=== PATIENT | male | born 1995 | race Caucasian/White ===

== ENCOUNTER → 2018-03-23 12:29 | Emergency (ER) | payer BC ==
[~2018-03-23 12:29] MED LIST: Ketorolac INJ* 30 MG/ML 1 ML VIAL IV PUSH ONE; NS 0.9% 1000 ML* 1,000 ML IV ONE; Ondansetron INJ* 2 MG/ML VIAL IV ONE
--- NOTE | 2018-03-23 13:55 | RAD ---
HISTORY: cough, chills COMPARISONS: None VIEWS: 4: Frontal dual-energy and lateral views of the chest. FINDINGS: CARDIOMEDIASTINAL SILHOUETTE: The cardiomediastinal silhouette is normal. ESTHELA: The esthela are normal. PLEURA: The costophrenic angles are sharp. No pleural abnormalities are noted. LUNG PARENCHYMA: The lungs are clear. ABDOMEN: The upper abdomen is clear. There is no subphrenic gas. BONES AND SOFT TISSUES: No bone or soft tissue abnormalities are noted. OTHER: None. IMPRESSION: NO ACTIVE CARDIOPULMONARY DISEASE.
--- NOTE | 2018-03-23 18:06 | ED ---
Complex/Multi-Sys Presentation - HPI Summary HPI Summary: A 23 y/o M presents to ED with c/o nausea/vomiting onset this afternoon [employer] while fishing. Associated sx: hematemesis, productive cough onset 0200, R-sided CP secondary to cough and deep breaths, sore throat, hot/cold flashes, dizziness. Denies MERLOS, abd pain, back pain, bowel and urinary symptoms, rash, pedal edema, anxiety, depression. Pt denies being around anyone sick recently. He does not take daily aspirin or motrin. Pt is a smoker. Denies daily ETOH. Denies PMHx: DM, HTN. - History Of Current Complaint Chief Complaint: EDGeneral Hx Obtained From: Patient, Family/Assistant Professor In Family Studies - dad Onset/Duration: Sudden Onset, Lasting Hours, Still Present Timing: Constant Severity Currently: Moderate Severity Initially: Moderate Associated Signs And Symptoms: Positive: Dizziness, Cough, Chest Pain, Nausea, Vomiting, Hematemesis, Other - pos: sore throat; hot/cold flashes. neg: anxiety , depression. Negative: Headache, Edema - pedal edema, Abdominal Pain, Back Pain, Dysuria, Melena - Allergies/Home Medications Allergies/Adverse Reactions: Allergies Allergy/AdvReac Type Severity Reaction Status Date / Time No Known Allergies Allergy Verified 03/23/18 17:47 PMH/Surg Hx/FS Hx/Imm Hx Previously Healthy: Yes Endocrine/Hematology History: Denies: Hx Diabetes Cardiovascular History: Denies: Hx Hypertension Respiratory History: Denies: Hx Chronic Obstructive Pulmonary Disease (COPD) Opthamlomology History: Denies: Hx Legally Blind Neurological History: Denies: Hx CVA Infectious Disease History: No Infectious Disease History: Denies: Traveled Outside the [place] in Last 30 Days - Family History Known Family History: Positive: Diabetes - mom Negative: Cardiac Disease, Hypertension - Social History Occupation: Employed Full-time Lives: Alone Alcohol Use: Rare Substance Use Type: Reports: Marijuana Substance Use Comment - Amount & Last Used: 03/09/18 Smoking Status (MU): Heavy Every Day Tobacco Smoker Review of Systems Positive: Other - pos: hot/cold flashes Positive: Sore Throat Positive: Chest Pain - secondary to cough Positive: Cough Positive: Vomiting - with blood, Nausea. Negative: Abdominal Pain Genitourinary: Negative Negative: Edema Skin: Negative Neurological: Other - pos: dizziness Negative: Headache Negative: Anxious, Depressed All Other Systems Reviewed And Are Negative: No Physical Exam - Summary Physical Exam Summary: Appearance: Alert, conversive, nontoxic appearing Skin: Warm, dry, no mottling, no rashes, no contusions HEENT: EOMI, PERRL, moist mucous membranes Neck: No masses on the neck, supple Respiratory: Clear to auscultation, breath sounds present, no rales, no rhonchi , no wheezes Cardiovascular: RRR, pulses are symmetrical in both lower and upper extremities. Mild reproducible chest wall pain on R-side. Abdomen: Soft, non-tender Bowel Sounds: Present Musculoskeletal: No CVA tenderness, no obvious deformity, moving all extremities in a grossly normal manner Neurological: A&Ox3, CN II-XII Intact, moving all extremities symmetrically Psychiatric: Normal affect and mood Triage Information Reviewed: Yes Vital Signs On Initial Exam: Initial Vitals Temp Pulse Resp BP Pulse Ox 98.1 F 60 18 111/96 98 03/23/18 12:37 03/23/18 12:37 03/23/18 12:37 03/23/18 12:37 03/23/18 12:37 Vital Signs Reviewed: Yes Diagnostics - Vital Signs Vital Signs Temp Pulse Resp BP Pulse Ox 03/23/18 17:47 83 14 136/74 98 03/23/18 17:46 78 98 03/23/18 17:03 99.3 F 72 20 132/73 100 03/23/18 15:35 98.7 F 78 20 139/68 100 03/23/18 12:37 98.1 F 60 18 111/96 98 - Laboratory Result Diagrams: 03/23/18 18:48 03/23/18 18:48 Lab Statement: Any lab studies that have been ordered have been reviewed, and results considered in the medical decision making process. - Radiology CXR Xray Interpretation: No Acute Changes - IMPRESSION: No active cardiopulmonary dz. ED provider has reviewed this report. Radiology Interpretation Completed By: Radiologist Re-Evaluation - Re-Evaluation 1 Re-Evaluation Time: 20:33 Change: Improved Comment: Discussing results with pt and plan to dispo. Complex Multi-Symp Course/Dx Course Of Treatment: Pt is a 23 y/o M presenting with sudden-onset n/v and hematemisis this afternoon. Associated sx: cough onset 0200, R-sided CP secondary to cough and deep breaths, sore throat, hot/cold flashes, dizziness. CXR is unremarkable. Flu in negative. - Diagnoses Provider Diagnoses: Costochondritis, Acute bronchitis Discharge - Sign-Out/Discharge Documenting (check all that apply): Patient Departure - DC - Discharge Plan Condition: Stable Disposition: HOME Prescriptions: Azithromyxin JAKOB (NF) [Z-Jakob (Zithromax) 250 mg tabs #6] 2 tab PO .TODAY, THEN 1 DAILY #6 tab Patient Education Materials: Costochondritis (ED), Acute Bronchitis (ED) Forms: *Work Release Referrals: [facility] [Outside] [facility] [Outside] Additional Instructions: take the medications as previously instructed. return if worse or any new symptoms. Please follow up with your primary care physician this week. take tylenol and motrin for pain. - Billing Disposition and Condition Condition: STABLE Disposition: Home - Attestation Statements Document Initiated by Scribe: Yes Documenting Scribe: Jyotsna Dunlap Provider For Whom Vaishaliibe is Documenting (Include Credential): Dr. Belen Felix MD Scribe Attestation: I, Jyotsna Dunlap, scribed for Dr. Belen Felix MD on 03/23/18 at 2156. Scribe Documentation Reviewed: Yes Provider Attestation: The documentation as recorded by the Jyotsna abdi accurately reflects the service I personally performed and the decisions made by , Dr. Belen Felix MD
[2018-03-23 18:54] LABS: ABS Basophils 0.2 10^3/ul (0-0.2); ABS Eosinophils 0.1 10^3/ul (0-0.6); ABS Lymphocytes 3.2 10^3/ul (1.0-4.8); ABS Neutrophils 6.1 10^3/ul (1.5-7.7); ABS Nucleated RBC 0 10^3/ul; Eosinophil % 1.2 % (0-6); Hematocrit 45 % (42-52); Hemoglobin 15.5 g/dl (14.0-18.0); Lymphocyte % 30.2 % (25-47); Mean Corpuscular HGB Conc 35 g/dl (31-36); Mean Corpuscular Hemoglobin 32 pg (27-31); Mean Corpuscular Volume 92 fL (80-94); Mean Platelet Volume 7.7 um3 (7.4-10.4); Nucleated Red Blood Cells % 0.1; Platelet Count 291 10^3/ul (150-450); Red Blood Count 4.88 10^6/ul (4.00-5.40); Red Cell Distribution Width 14 % (10.5-15); White Blood Count 10.6 10^3/ul (3.5-10.8)
[2018-03-23 19:10] LABS: EGFR Non-African American 120.9 (>60)
[2018-03-23 20:54] VITALS: BP 131/71
== END | disposition home or self-care (01) ==
LOC: ED 12:29
DX: M94.0 Chondrocostal junction syndrome [Tietze] (principal); J20.9 Acute bronchitis, unspecified; E11.9 Type 2 diabetes mellitus without complications; I10 Essential (primary) hypertension; Z72.0 Tobacco use
CPT/HCPCS: 36415; 71046; 80053; 83605; 83690; 85025; 85379; 96361; 96374; 96375; 99283; J1885; J2405

== ENCOUNTER 2019-01-24 08:01 | Emergency (ER) | payer BC, OTHER ==
--- NOTE | 2019-01-24 08:15 | ED ---
Upper Extremity Pain - History of Current Complaint Chief Complaint: EDShoulderClavicleInj Stated Complaint: LEFT SHOULDER PAIN PER PT Time Seen by Provider: 01/24/19 08:10 Hx Obtained From: Patient - Allergies/Home Medications Allergies/Adverse Reactions: Allergies Allergy/AdvReac Type Severity Reaction Status Date / Time No Known Allergies Allergy Verified 01/24/19 08:05 Home Medications: Home Medications NK [No Home Medications Reported] 01/24/19 [History Confirmed 01/24/19] PMH/Surg Hx/FS Hx/Imm Hx Previously Healthy: Yes Endocrine/Hematology History: Denies: Hx Diabetes Cardiovascular History: Denies: Hx Hypertension Respiratory History: Denies: Hx Chronic Obstructive Pulmonary Disease (COPD) Sensory History: Denies: Hx Legally Blind Opthamlomology History: Denies: Hx Legally Blind Neurological History: Denies: Hx CVA Infectious Disease History: No Infectious Disease History: Denies: Traveled Outside the [place] in Last 30 Days - Family History Known Family History: Positive: Diabetes - mom, Non-Contributory Negative: Cardiac Disease, Hypertension - Social History Occupation: Employed Full-time Lives: With Family Alcohol Use: Rare Substance Use Type: Reports: Marijuana Substance Use Comment - Amount & Last Used: 03/09/18 Smoking Status (MU): Heavy Every Day Tobacco Smoker Physical Exam Vital Signs On Initial Exam: Initial Vitals Temp Pulse Resp BP Pulse Ox 98.4 F 81 16 130/74 97 01/24/19 08:02 01/24/19 08:02 01/24/19 08:02 01/24/19 08:02 01/24/19 08:02 Diagnostics - Vital Signs Vital Signs Temp Pulse Resp BP Pulse Ox 01/24/19 08:02 98.4 F 81 16 130/74 97 - Laboratory Lab Statement: Any lab studies that have been ordered have been reviewed, and results considered in the medical decision making process. Discharge - Discharge Plan Referrals: No Primary Care Phys,NOPCP [Primary Care Provider] -
[2019-01-24] MEDS ORDERED: Ibuprofen TAB* 600 MG PO ONE (08:20)
--- NOTE | 2019-01-24 08:22 | ED ---
Upper Extremity Pain - HPI Summary HPI Summary: Pt. is a 23 y.o male who presents to the ER for left shoulder pain. Pt. states he has been having left posterior shoulder pain for years. He states he has been seeing a chiropractor. Pt. states he was moving his house two days ago and since has had increased left shoulder pain. Sxs are mild in severity. Denies numbness, tingling, or weakness. - History of Current Complaint Chief Complaint: EDShoulderClavicleInj Stated Complaint: LEFT SHOULDER PAIN PER PT Time Seen by Provider: 01/24/19 08:10 Hx Obtained From: Patient - Allergies/Home Medications Allergies/Adverse Reactions: Allergies Allergy/AdvReac Type Severity Reaction Status Date / Time No Known Allergies Allergy Verified 01/24/19 08:05 Home Medications: Home Medications NK [No Home Medications Reported] 01/24/19 [History Confirmed 01/24/19] PMH/Surg Hx/FS Hx/Imm Hx Previously Healthy: Yes Endocrine/Hematology History: Denies: Hx Diabetes Cardiovascular History: Denies: Hx Hypertension Respiratory History: Denies: Hx Chronic Obstructive Pulmonary Disease (COPD) Sensory History: Denies: Hx Legally Blind Opthamlomology History: Denies: Hx Legally Blind Neurological History: Denies: Hx CVA Infectious Disease History: No Infectious Disease History: Denies: Traveled Outside the [place] in Last 30 Days - Family History Known Family History: Positive: Diabetes - mom, Non-Contributory Negative: Cardiac Disease, Hypertension - Social History Occupation: Employed Full-time Lives: With Family Alcohol Use: Rare Substance Use Type: Reports: Marijuana Substance Use Comment - Amount & Last Used: 03/09/18 Smoking Status (MU): Heavy Every Day Tobacco Smoker Review of Systems Positive: Other - Left shoulder pain Skin: Negative Neurological: Negative Negative: Weakness, Paresthesia, Numbness All Other Systems Reviewed And Are Negative: Yes Physical Exam Triage Information Reviewed: Yes Vital Signs On Initial Exam: Initial Vitals Temp Pulse Resp BP Pulse Ox 98.4 F 81 16 130/74 97 01/24/19 08:02 01/24/19 08:02 01/24/19 08:02 01/24/19 08:02 01/24/19 08:02 Vital Signs Reviewed: Yes Appearance: Positive: Well-Appearing - Pt. sitting on bed in NAD. Family present. Skin: Positive: Warm, Dry Head/Face: Positive: Normal Head/Face Inspection Eyes: Positive: Normal, EOMI Neck: Positive: Supple Musculoskeletal: Positive: Normal, Strength/ROM Intact, Other - Full ROM of left shoulder with pain. Pain to posterior aspect of shouler and left upper back. Neurological: Positive: Normal, CN Intact II-III Psychiatric: Positive: Affect/Mood Appropriate Diagnostics - Vital Signs Vital Signs Temp Pulse Resp BP Pulse Ox 01/24/19 08:02 98.4 F 81 16 130/74 97 - Laboratory Lab Statement: Any lab studies that have been ordered have been reviewed, and results considered in the medical decision making process. Course/Dx - Course Course Of Treatment: Pt. presenting for exacerbation of ongoing left shoulder pain. Xray negative for acute findings. Recommend tylenol or motrin for pain as directed. Ice and avoid heavy lifiting. Will have pt. f.u with ortho. given ongoing pain. Pt. understands and agrees with plan. - Diagnoses Differential Diagnosis/HQI/PQRI: Positive: Contusion, Hematoma, Strain, Sprain Provider Diagnoses: Shoulder pain, Muscle strain Discharge - Sign-Out/Discharge Documenting (check all that apply): Patient Departure Patient Received Moderate/Deep Sedation with Procedure: No - Discharge Plan Condition: Good Disposition: HOME Patient Education Materials: Muscle Strain (ED), Shoulder Pain (ED) Forms: *Work Release Referrals: Elijah Gonzales MD [Medical Doctor] - Additional Instructions: Call the orthopedic clinic Friday to schedule an appointment for further evaluation Ibuprofen 600mg every 8 hours x 1-2 weeks Apply heat Gentle stretching and massage Return to ER if symptoms change or worsen - Billing Disposition and Condition Condition: GOOD Disposition: Home
[2019-01-24 09:45] VITALS: BP 122/61
== END 2019-01-24 09:44 | disposition home or self-care (01) ==
LOC: ED 08:01
DX: S46.912A Strain of unspecified muscle, fascia and tendon at shoulder and upper arm level, left arm, initial encounter (principal); X58.XXXA Exposure to other specified factors, initial encounter; Y92.9 Unspecified place or not applicable; M25.512 Pain in left shoulder; M54.6 Pain in thoracic spine; F17.200 Nicotine dependence, unspecified, uncomplicated
CPT/HCPCS: 99281; A9270-GY